=== PATIENT | male | born 1980 | race Caucasian/White ===

== ENCOUNTER 2025-10-22 21:55 | Observation (INO) | payer BC ==
[2025-10-22] MEDS ORDERED: Acetaminophen 325 MG TAB PO PRN (22:52)
[2025-10-22] MEDS ORDERED: Ondansetron PF 4 MG/2 ML Vial IVP PRN (22:52)
[2025-10-22] MEDS: Ketorolac Tromethamine 30 MG (1 mL) VIAL IVP PRN (23:42)
[2025-10-23 01:05] VITALS: BMI 31.0
[2025-10-23 05:10] LABS: #Basophils 0.05 10x3/uL (0.0-0.2); #Eosinophils 0.36 10x3/uL (0.0-0.7); #Monocytes 1.04 10x3/uL (0.11-0.59); #Neutrophils 5.62 10x3/uL (1.40-6.50); %Basophils 0.5 % (0.0-1.0); %Eosinophils 3.5 % (0.0-10.0); %Lymphocytes 30.1 % (21.0-51.0); %Monocytes 10.2 % (0.0-10.0); %Neutrophils 55.1 % (42.0-75.0); Hematocrit 38.1 % (42.0-52.0); Hemoglobin 12.6 g/dL (14.0-18.0); Mean Corpuscular Hemoglobin 31.9 pg (27.0-31.0); Mean Corpuscular Volume 96.5 fL (78.0-98.0); Platelet Count 141 10x3/uL (130-400); Red Blood Cell (RBC) Count 3.95 mill/uL (4.70-6.10); White Blood Cell (WBC) Count 10.20 10x3/uL (4.8-10.8)
[2025-10-23 05:38] LABS: ALT (SGPT) 61 U/L (Less than 45); AST (SGOT) 33 U/L (11-34); Albumin 3.4 g/dL (3.1-4.5); Alkaline Phosphatase 56 U/L (40-110); Anion Gap 12 mmol/L (10-20); BUN (Urea Nitrogen) 11 mg/dL (8.9-20.6); Bilirubin, Total 0.6 mg/dL (0.3-1.2); Calc. Creatinine Clearance 164 mL/min (70-130); Calcium 8.6 mg/dL (7.8-10.44); Carbon Dioxide 23 mmol/L (22-29); Chloride 108 mmol/L (98-107); Globulin 2.9 g/dL (2.4-3.5); Glucose 91 mg/dL (70-105); Potassium 4.3 mmol/L (3.5-5.1); Sodium 139 mmol/L (136-145)
[2025-10-23 12:19] VITALS: BP 121/80; TEMP 98.3
== END 2025-10-23 18:13 | disposition home or self-care (01) ==
LOC: SURG A 22:49 → INTOOBSV 22:49
PROVIDERS: ADMIT Internal Medicine; ATTEND Family Medicine
DX: K85.90 Acute pancreatitis without necrosis or infection, unspecified (principal); I10 Essential (primary) hypertension; F17.220 Nicotine dependence, chewing tobacco, uncomplicated; Z90.89 Acquired absence of other organs; Z79.899 Other long term (current) drug therapy
CPT/HCPCS: 36415; 76705; 80053; 83690; 84478; 85025; 96374; G0378; J1885; J7120